=== PATIENT | male | born 1945 | race Caucasian/White ===

== ENCOUNTER 2023-11-08 16:26 | Emergency (ER) | payer MEDICARE, OTHER, SELFPAY ==
--- NOTE | ~2023-11-08 | CT_ITS ---
EXAMINATION: CT brain wo con DATE: 11/08/2023 18:44 INDICATION: Headache. History of subdural hematoma. TECHNIQUE: Computed tomography (CT) of the head was performed without intravenous contrast. The mA wa s adjusted according to patient size. Iterative reconstruction technique was employed. Exam dose: 60 5.33 mGy-cm total exam DLP. COMPARISON: None FINDINGS: There is nonspecific diminished attenuation of the cerebral white matter, which may be due to chronic small vessel ischemic changes or demyelinating process. Bilateral carotid siphon internal carotid artery calcifications are noted. No intracranial mass lesion or hemorrhage or cerebrovascular accident is evident. No midline shift or mass effect. No subdural or epidural hematoma is detected. With the exception of an opacified right and left ethmoid air cell, the paranasal sinuses are normall y developed and aerated. Nasal antral windows are noted. The mastoid air cells are normally developed and aerated. No fracture or bone destruction of the cranial vault IMPRESSION: Cerebral atherosclerosis and chronic small vessel ischemic changes of the cerebral white matter No acute intracranial finding Reviewed, dictated and finalized at [facility]. Reviewed, dictated and finalized at [facility].
[2023-11-08 16:43] VITALS: BP 131/55; PULSE 70; RESP 16; TEMP 36.6; O2SAT 95
[2023-11-08 19:00] VITALS: BP 168/77; PULSE 67; TEMP 36.7; O2SAT 99
--- NOTE | 2023-11-08 19:17 | ED.HA ---
HPI - Headache General Chief Complaint: Headache Stated Complaint: callejas x 2 days Time Seen by Provider: 11/08/23 19:03 History of Present Illness HPI Narrative: Patient has a recent traumatic brain bleed, he is here to get a recheck to make sure that the repeat CT looks fine. Denies any headache or symptoms currently. Related Data Home Medications Medication Instructions Recorded Confirmed acetaminophen 500 mg tablet 1,000 mg PO TID PRN Fever Or Pain 10/30/23 10/30/23 albuterol sulfate 90 mcg/actuation 2 puff inhalation Q6H PRN 10/30/23 10/30/23 aerosol inhaler Shortness Of Breath amitriptyline 25 mg tablet 25 mg PO HS 10/30/23 10/30/23 aspirin 81 mg chewable tablet 81 mg PO DAILY 10/30/23 10/30/23 calcium carbonate 600 mg-vitamin 1 tablet PO DAILY 10/30/23 10/30/23 D3 10 mcg (400 unit) tablet cetirizine 10 mg tablet 10 mg PO DAILY 10/30/23 10/30/23 clopidogrel 75 mg tablet 75 mg PO DAILY 10/30/23 10/30/23 famotidine 20 mg tablet 20 mg PO BID 10/30/23 10/30/23 fluticasone propionate 50 2 spray intranasal DAILY 10/30/23 10/30/23 mcg/actuation nasal spray,suspension gabapentin 300 mg capsule 300 mg PO TID 10/30/23 10/30/23 isosorbide mononitrate 30 mg 60 mg PO DAILY 10/30/23 10/30/23 tablet,extended release 24 hr levothyroxine 25 mcg tablet 25 mcg PO QACBREAK 10/30/23 10/30/23 metoprolol succinate 25 mg 25 mg PO DAILY 10/30/23 10/30/23 tablet,extended release 24 hr nitroglycerin 0.4 mg sublingual 0.4 mg sublingual Q5M PRN Chest 10/30/23 10/30/23 tablet Pain omega-3 fatty acids 500 mg capsule 1,000 mg PO BID 10/30/23 10/30/23 oxycodone 5 mg tablet 5 mg PO Q6H PRN Pain 10/30/23 10/30/23 polyethylene glycol 3350 17 gram 17 g PO DAILY 10/30/23 10/30/23 oral powder packet rosuvastatin 40 mg tablet 40 mg PO DAILY 10/30/23 10/30/23 sennosides 8.6 mg tablet 8.6 mg PO DAILY 10/30/23 10/30/23 sertraline 100 mg tablet 100 mg PO DAILY 10/30/23 10/30/23 Allergies Allergy/AdvReac Type Severity Reaction Status Date / Time No Known Allergies Allergy Verified 11/08/23 19:04 Review of Systems Review of Systems: All systems reviewed & are unremarkable except as noted in HPI and below PMFSH Past Medical History Medical History Arthritis CAD (coronary artery disease) COPD (chronic obstructive pulmonary disease) Depression HLD (hyperlipidemia) HTN (hypertension) Hypothyroidism Neuropathic pain Trigeminal neuralgia Family History Family History Other Hypertension Social History Social History Smoking packs per day: 2 Smoking cigarettes per day: 40.0 Years smoked: 20 Smoking pack-years: 40.00 Smoking status: Former smoker Tobacco type: cigarettes Second hand tobacco smoke exposure: No Smoking end date: 06/01/87 Alcohol intake: current Drinks per week: 7 Substance use: never Substance use type: does not use Do You Feel Safe in your Home?: Yes Lack of Transportation: No Lack of Food: Never True Current Housing: I Have Housing Concerned About Future Housing: No Difficulty Paying Gas/Electric Bills: No Difficulty Paying for Meds: No Currently Unemployed: No Education: High School Diploma/GED Difficulty w/ Childcare or Family Care: No Spiritual care concerns: No Exam Narrative: EXAMINATION OF ORGAN SYSTEMS/BODY AREAS: Constitutional: Vital signs per nursing GENERAL:[No acute distress, non-toxic appearing.] HEAD: Normal with no signs of head trauma. EYES: EOMI, conjunctiva normal ENT: Hearing grossly intact LUNGS: Nonlabored breathing. HEART: [Regular rate and rhythm] ABD: No distension EXT: Normal range of motion SKIN: [No rashes or lesions.] NEURO: [Alert and oriented x 3. No gross focal sensory or strength deficits.] Symmetric face, clear speecht PSYCH: Normal affect [place]
== END 2023-11-08 20:00 ==
LOC: ANHED 19:34
PROVIDERS: Emergency Provider Emergency Medicine
DX: S09.90XA Unspecified injury of head, initial encounter (principal); M19.90 Unspecified osteoarthritis, unspecified site; I25.10 Atherosclerotic heart disease of native coronary artery without angina pectoris; J44.9 Chronic obstructive pulmonary disease, unspecified; F32.A Depression, unspecified; E78.5 Hyperlipidemia, unspecified; I10 Essential (primary) hypertension; E03.9 Hypothyroidism, unspecified; X58.XXXA Exposure to other specified factors, initial encounter
CPT/HCPCS: 70450; 99284